=== PATIENT | female | born 1990 | race Caucasian/White ===

== ENCOUNTER 2022-05-28 09:54 | Outpatient (CLI) | payer OTHER, SELFPAY ==
[2022-05-28 11:57] LABS: Cholesterol* 217 mg/dL (90-199)
[2022-05-28 11:58] LABS: HDL Cholesterol* 76 mg/dL (>=50); LDL Cholesterol Calculated 104 mg/dL (<100); Triglycerides* 185 mg/dL (40-149)
== END 2022-05-28 09:55 | disposition home or self-care (01) ==
LOC: NFLDREF 09:55
PROVIDERS: Visit Provider Obstetrics & Gynecology
DX: Z13.6 Encounter for screening for cardiovascular disorders (principal)
CPT/HCPCS: 80061

== ENCOUNTER 2022-08-26 08:36 | Outpatient (CLI) | payer OTHER, SELFPAY ==
--- NOTE | 2022-08-26 08:45 | CRLHL7_ITS ---
For Patients: As a result of the Cures Act, medical imaging exams and procedure reports are released immediately into your electronic medical record. You may view this report before your referring provider. If you have questions, please contact your health care provider. RIGHT DIAGNOSTIC MAMMOGRAM WITH COMPUTER-AIDED DETECTION AND TOMOSYNTHESIS CLINICAL HISTORY: RIGHT breast lump. COMPARISON: None. TECHNIQUE: Digital RIGHT mammogram in 2 projections. Computer-aided detection and tomosynthesis were used. Real-time ultrasound imaging of RIGHT breast with imaging documentation. BREAST COMPOSITION: The breasts are heterogeneously dense, which may obscure small masses FINDINGS: 3D CC/MLO RIGHT breast mammogram submitted. Normal fibroglandular tissue without architectural distortion or suspicious masses. No suspicious calcifications or adenopathy. Targeted RIGHT breast ultrasound 11 o`clock 5 cm performed. In this location there is a small epidermal cyst measuring 2 x 4 x 1 millimeter. No suspicious findings. IMPRESSION: Incidental 4 millimeter epidermal cyst 11 o`clock RIGHT breast 5 cm from the nipple. No evidence of malignancy or abscess. RECOMMENDATIONS: Clinical follow-up. Age appropriate screening mammography. BI-RADS Category 2: Benign Results and recommendations discussed with the patient. A lay language report of this examination will be provided to the patient. Dictated by Junaid Banrejee MD @ 08/26/2022 9:59:09 AM/noris ROGELIO/Dictated by: Junaid Banerjee MD @ 08/26/2022 9:59:00 AM (Electronically Signed)
--- NOTE | 2022-08-26 09:15 | CRLHL7_ITS ---
For Patients: As a result of the Century Cures Act, medical imaging exams and procedure reports are released immediately into your electronic medical record. You may view this report before your referring provider. If you have questions, please contact your health care provider. PLEASE SEE RIGHT DIAGNOSTIC MAMMOGRAM OF SAME DAY. CRL:noris ROGELIO/Dictated by: Junaid Banerjee MD @ 08/26/2022 9:59:00 AM (Electronically Signed)
== END 2022-08-26 08:37 | disposition home or self-care (01) ==
LOC: MAMMO 08:37
PROVIDERS: Visit Provider Physician Assistant
DX: N63.10 Unspecified lump in the right breast, unspecified quadrant (principal); N60.81 Other benign mammary dysplasias of right breast
CPT/HCPCS: 76642; 77065; G0279

== ENCOUNTER 2024-08-06 09:17 | Outpatient (CLI) | payer OTHER, SELFPAY | END 2024-08-06 09:18 | disposition home or self-care (01) | PROVIDERS: Visit Provider Obstetrics & Gynecology | DX: E78.00 Pure hypercholesterolemia, unspecified (principal); Z13.1 Encounter for screening for diabetes mellitus | CPT/HCPCS: 80061; 82947 ==